=== PATIENT | female | born 1930 | race Caucasian/White ===

== ENCOUNTER 2016-04-21 15:13 | Inpatient (IN) | payer MEDICARE ==
[~2016-04-21] VITALS: Ht 154.9 cm; Wt 55.2 kg
--- NOTE | ~2016-04-21 | ECH ---
Transthoracic Echocardiography Report (TTE) Demographics Patient Name KELLY BREWER Date of Study 04/22/2016 Patient Number [id number] Visit Number [id number] Date of 1930 Room Number 426 Accession Number [id number] Gender Female Age 85 year(s) Referring Ajit Stewart Molder Operator Daniella Byrd Physician [facility] Physician Interpreting Elisa Riggs Scrub Wheel Operator Physician Supervising Ordering Physician Ajit Stewart MD/MLP Nurse Stress Wire Weaver Conclusions Contractility Score Summary Normal Left Ventricular contractility was noted. Summary Technically good exam. The estimated left ventricular ejection fraction is 60-65%. Mild concentric left ventricular hypertrophy. Normal right ventricle structure with reduced function. The left atrium is moderately dilated by LA volume index measurement. The right atrium is mildly dilated. Moderate mitral regurgitation by color Doppler. Moderate to severe tricuspid regurgitation by color Doppler. There is moderate pulmonary hypertension. The pulmonary pressure (RVSP) is 56 mmHg. Procedure Type of Study TTE procedure:Echo Complete SF. Procedure Date Date: 04/22/2016 Start: 08:35 AM Technical Quality: Good visualization Indications:Atrial fibrillation and Hypertension. Appropriate Use Criteria: 9 Height: 61 inches Weight: 137 pounds BSA: 1.61 m Rhythm: Atrial fibrillation HR: 83 bpm BP: 115/76 mmHg M-Mode/2D Measurements LV Diastolic Dimension: 3.39 cm LV Systolic Dimension: 3.02 cm LV Septum Diastolic: 1.11 cm LV PW Diastolic: 1.07 cm AO Root Dimension: 2.84 cm Cardiac Output: 2.5 l/min LA Dimension: 4.27 cm Cardiac Index: 1.55 l/min*m RV Diastolic Dimension: 3.48 cm LA volume index: 43 ml/m LVOT: 1.83 cm LVOT VTI: 11.44 cm RV Base: 3.3 cm LV Stroke volume: 30.07 ml RV Mid: 2.8 cm LV Stroke volume index: 18.68 ml/m TAPSE: 1.2 cm TDI-S': 8 cm/s Doppler Measurements AV Peak Velocity: 1.6 m/s MV Peak E-Wave: 1.54 m/s AV Peak Gradient: 10.24 mmHg AV Mean Gradient: 4.97 mmHg MV P1/2t: 97.8 msec LVOT Peak Velocity: 0.81 m/s MV Mean Gradient: 4.79 mmHg AV Area (Continuity):1.25 cm MV Deceleration Time: 337.3 msec TR Velocity:3.57 m/s MV Area (PHT): 2.25 cm TR Gradient:50.98 mmHg PV Peak Velocity: 0.9 m/s Estimated RAP:5 mmHg PV Peak Gradient: 3.27 mmHg Estimated RVSP: 56 mmHg Estimated PASP: 55.98 mmHg E' Septal Velocity: 0.06 m/s E' Lateral Velocity: 0.08 m/s RA Area: 19.42 cm Findings Left Ventricle The left ventricle is normal in size . Mild concentric left ventricular hypertrophy. Diastolic function indeterminate due to patient's arrhythmia. Right Ventricle Normal right ventricle structure with reduced function. Left Atrium The left atrium is moderately dilated by LA volume index measurement. Right Atrium The right atrium is mildly dilated. Mitral Valve Moderate mitral annular calcification. Mild mitral regurgitation by color Doppler. Aortic Valve The aortic valve is moderately sclerotic. Tricuspid Valve Normal tricuspid valve structure and function. Moderate tricuspid regurgitation by color Doppler. There is moderate pulmonary hypertension. The pulmonary pressure (RVSP) is 56 mmHg. Pulmonic Valve Normal pulmonic valve structure and function. Trivial pulmonic valve regurgitation by color Doppler. Pericardial Effusion No evidence of pericardial effusion. Miscellaneous Visualized portions of the aortic root and ascending aorta appear normal in size. Pleural Effusion No evidence of pleural effusion. Contractility Score LV regional wall motion:(0-Non visualized 1-Normal 2-Hypokinesis 3-Akinesis 4-Dyskinesis 5-Aneurysm) Signature
--- NOTE | ~2016-04-21 | OR ---
ADMIT: 04/21/2016 RM/LOC: 426 [facility] MR#: [id number] [address] [address] KELLY BREWER [address] [place] [address] Operative/Delivery Room Report SEX: F AGE: 85 : 1930 SURGERY DATE: 04/22/2016 SURGEON: Ethan Joshi MD PREOPERATIVE DIAGNOSES: Anemia and gastroesophageal reflux disease. POSTOPERATIVE DIAGNOSIS: No evidence of active bleeding, ulcers, masses, or other significant lesions. About a 4-5 cm hiatal hernia with some reflux esophagitis. PROCEDURE: EGD with biopsies of the distal esophagus. ANESTHESIA: MAC anesthesia. ESTIMATED BLOOD LOSS: Less than 5 mL. INDICATION FOR PROCEDURE: Please see H and P. After the risks, benefits, possible complications, and the alternatives have been explained and informed consent had been obtained, the patient was taken back to the procedure room, underwent sedation. Flexible EGD scope was introduced, slowly maneuvered down the esophagus to the distal, and there was some evidence of distal reflux esophagitis and about a 4 to 5 cm hiatal hernia. No other mass or lesion was noted. Maneuvered through the stomach, no ulcers or lesions, no signs of bleeding there down into the second portion of the duodenum. Duodenum and duodenal bulb appeared clear. No other mass, lesion, or signs of bleeding. I brought the scope back. Retroflexed view showed about a 4 to 5 cm hiatal hernia, but like I said again, no lesions or signs of bleeding. I came back up and biopsied the distal esophagus secondary to some reflux esophagitis there. Did not identify any other significant findings within the upper esophagus. The scope was removed and the procedure was terminated, tolerated it well, was taken to recovery room in stable and satisfactory condition. Ethan Joshi MD/ modl JOB #: [id number] CC: Alena Fong, Attending Physician Alena Fong, Family Physician
--- NOTE | 2016-04-26 10:08 | CO ---
ADMIT: 04/21/2016 RM/LOC: 426 [facility] MR#: [id number] [address] [address] KELLY BREWER [address] [place] [address] Consultation SEX: F AGE: 85 : 1930 DATE OF CONSULTATION: 04/23/2016 ATTENDING PHYSICIAN: Alena Fong CONSULTING PHYSICIAN: Ethan Joshi MD ADDENDUM: See full dictated consult by uRfino Ramirez, my PA, this is an addendum. The patient is an 85-year-old female, whom I had seen yesterday. We did an EGD because of the anemia, it did not really show any evidence of sites of bleeding or causes of anemia. Did have some reflux esophagitis. Significant past medical history for a vulvar cancer and a vulvectomy in the past and some hypertension, but taking no medications. Her ultrasound showed some stones and thickening of the gallbladder wall, but her common bile duct was normal. If you look at her enzymes, her bilirubin continues to climb. Her AST and ALT are mildly elevated but like I said, alkaline phosphatase is normal. At this point, with a normal looking common bile duct, truly got good visualization on ultrasound, this being unusual that this be a common bile duct stone and so makes me worry about a possible pancreatic type mass, this could be intrinsic liver disease. Her HIDA scan showed no filling of the common bile duct, pointing kind of more to some intrinsic liver disease as well but with high bilirubin, the HIDA scan not really reliable. Complains of generalized abdominal pain, just overall ill-looking female, in no significant or acute distress. The plan is, at this time, she is to get a CT scan to evaluate her abdomen and pelvis, and we will go from there. Like I said, nothing else otherwise different or is changed from full dictated consult by Rufino Ramirez. The patient has been seen, evaluated, and examined by myself. Ethan Joshi MD/ robby JOB #: [id number] CC: Alena Fong, Attending Physician Alena Fong, Family Physician
--- NOTE | 2016-04-26 13:31 | ER ---
ADMIT: 04/21/2016 RM/LOC: 426 [facility] MR#: [id number] [address] [address] KELLY BREWER [address] [place] [address] Emergency Room Report SEX: F AGE: 85 : 1930 DATE: 04/21/2016 ADDENDUM: This patient comes into the ER because she has been weak for the last 2 days. She states she is having difficulty getting in and out of bed and feels like she could fall. She also is severely nauseated. She has had some diarrhea, and she says she has vomited once. On physical exam, this is a pale jaundice 85-year-old, white female who is indeed weak. When she comes in, she is covered in bed bugs and had to be cleaned from both stool and bed bugs. She denies any pain, and her major complaint is nausea. Her hemoglobin came back at 5.0. Her white count 10.0, platelet count 300. Her AST was 275, ALT 403, and bilirubin was 2.5. She denies any tobacco use. I did do a rectal exam on her. She had no pain in her rectum, but the stool was black and smelled of blood; however, the Hemoccult came back negative. I ordered type and cross for 2 units, and she did get that started here in the emergency room. Her urinalysis also was positive for infection and then she was given Rocephin 2 g IV. I spoke with Dr. Fong, and she will admit this patient. DIAGNOSES: 1. Anemia. 2. Weakness. 3. Bed bugs. 4. Urinary tract infection. FRANCISCA Douglass / Reyes Moss MD / robby JOB #: [id number] CC: Alena Fong MD, Attending Physician Alena Fong MD, Family Physician
--- NOTE | 2016-04-29 12:26 | HP ---
ADMIT: 04/21/2016 RM/LOC: 426 [facility] MR#: [id number] [address] [address] KELLY BREWER [address] [place] [address] History and Physical SEX: F AGE: 85 : 1930 DATE OF SERVICE: 04/21/2016 HISTORY OF PRESENT ILLNESS: An 85-year-old female with past medical history of hypertension, who presents with progressive weakness, nausea, and poor oral intake over the past 2 weeks. The patient notes that over the past couple of weeks, she has been more weak and fatigued and her oral intake has not been as good as it usually is. She endorses nausea and intermittent dry heaving. She associates this with loose stools, which have been much darker than normal for her. She denies any bright red blood per rectum. She denies fevers or sweats, but does endorse intermittent chills. She states that she has not been into see a physician for many years. She is not currently taking any prescription medications, and other than hypertension, she does not know of any chronic illness that she suffers from. She denies any history of acute abdominal pain. No dysuria, hematuria or increased urinary frequency. Her biggest complaint right now is that she is very thirsty, nauseous and very tired. She denies any recent travel or any recent sick contacts. 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 She does not smoke and she does not drink alcohol. She denies any significant surgical procedures in the past aside from a vulvectomy for presumed vulvar cancer. The patient lives at home with her . Over the last couple of weeks, she has not noticed any changing of her skin color or eye color. She does not notice any increased abdominal distention. She denies heart palpitations. No chest pain. No shortness of breath. PAST MEDICAL HISTORY: Hypertension. History of cancer, status post vulvectomy. MEDICATIONS: None. REVIEW OF SYSTEMS: A complete review of systems was performed and is negative unless noted in the HPI. PHYSICAL EXAMINATION: VITAL SIGNS: Afebrile. Blood pressure 134/80, heart rate 130s, respiratory rate 24, and pulse oximetry 98%. GENERAL: Appearing fatigued, in no acute distress. HEENT: Eyes do reveal scleral icterus. Mucous membranes are dry. No oral lesions noted. HEART: Irregularly irregular rhythm. Tachycardia. No murmurs or rubs or gallops appreciated. LUNGS: Clear to auscultation bilaterally. No rales, wheeze or rhonchi noted. Adequate inspiratory effort. No respiratory distress. ABDOMEN: Soft, nondistended, tender mildly to deep palpation in the periumbilical and right upper quadrant regions. Bowel sounds are normal. No splenomegaly. Mild hepatomegaly noted. Liver palpated at 1 fingerbreadth below the costovertebral margins. EXTREMITIES: Warm, well perfused. Legs demonstrating bilaterally lower extremity edema. 1+ pulses, 2+ equally bilaterally. ADMIT: 04/21/2016 RM/LOC: 426 [facility] MR#: [id number] [address] [address] KELLY BREWER [address] [place] [address] History and Physical SEX: F AGE: 85 : 1930 NEUROLOGIC: Alert and oriented x2. Cranial nerves intact. There are no focal, neurological abnormalities noted. LABORATORIES AND IMAGING DATA: Chest x-ray negative for acute cardiopulmonary process. No focal consolidation, effusion or edema. Urinalysis 3+ leukocyte esterase, negative nitrites, many bacteria noted. WBC 10, hemoglobin 5, MCV 59.3, platelets 300. Sodium 132, potassium 3.7, creatinine 1.1. Total bilirubin 2.5, alkaline phosphatase 110. AST 275, ALT 403, albumin 2.9. Lipase 243. ASSESSMENT AND PLAN: An 85-year-old female with past medical history of hypertension, who has not been connected with the medical system for many years, presents with progressive weakness in the setting of microcytic anemia and melenic loose stools for the past 1-2 weeks, concerning for a slow persistent upper gastrointestinal bleed. She also demonstrates acute hepatitis with elevated transaminases. 1. Microcytic anemia. Hemoglobin of 5 and MCV 60, I suspect that this is not an acute process and is likely secondary to slow upper gastrointestinal bleed. We will further evaluate reticulocyte count and iron studies. She is receiving 2 units of packed red blood cells. Her transfusion threshold is less than 7. 2. Melena. Initial FOBT was negative. We will repeat. Source is most likely upper gastrointestinal. General Surgery consulted for EGD tomorrow. Continue IV Protonix 40 mg twice daily n.p.o. after midnight. 3. Repeat hemoglobin 2 hours after transfusion complete. 4. Acute hepatitis. LFT pattern is consistent with an intrahepatic acute hepatitis, possible secondary to hepatitis C or hepatitis B virus given her history of IV drug use. We will check HBV and HCV and HIV. She demonstrates mild jaundice and scleral icterus. We will differentiate bilirubin level. Complete abdominal ultrasound ordered for further evaluation. 5. Urinary tract infection. IV ceftriaxone 2 g every 24 hours for the first 24 hours and we will then likely be able to transition to an oral first line regimen such as Macrobid. Blood cultures drawn and pending. ADMIT: 04/21/2016 RM/LOC: 426 [facility] MR#: [id number] [facility] [address] [address] KELLY BREWER [address] [place] [address] History and Physical SEX: F AGE: 85 : 1930 6. Atrial fibrillation with rapid ventricular response. No previous known history of atrial fibrillation. Heart rates are currently 120s to 140s. Denies heart palpitations. We will attempt rate control with p.r.n. IV metoprolol. Heart rate goal less than 110. Transthoracic echo ordered to evaluate for possible heart failure in the setting of atrial fibrillation. 7. Code status: DNR/DNI. 8. Deep vein thrombosis prophylaxis, sequential compression devices. 9. Diet. Clear liquid, n.p.o. at midnight. DISPOSITION: Admit to telemetry, anticipate length of stay greater than 2 midnights. Lio Chavira MD Resident / Alena Fong MD / robby JOB #: [id number] CC: Alena Fong, Attending Physician Alena Fong, Family Physician
[2016-05-05] MEDS ORDERED: METOPROLOL TART25 MG PO (06:02)
[2016-05-05] MEDS ORDERED: MICRO-K DPS10 MEQ PO (06:03)
[2016-05-05] MEDS ORDERED: PROTONIX40 MG PO (06:03)
[2016-05-05] MEDS ORDERED: TYLENOL DPS325 MG PO (06:03)
[2016-05-05] MEDS ORDERED: ZOLOFT DPS25 MG PO (06:03)
[2016-05-05] MEDS ORDERED: LASIX DPS80 MG PO (06:04)
[2016-05-05] MEDS ORDERED: COUMADIN2.5 MG PO (06:04)
--- NOTE | 2016-05-05 06:27 | CO ---
ADMIT: 04/21/2016 RM/LOC: 426 [facility] MR#: [id number] [address] [address] OLY BREWER [address] [place] [address] Consultation SEX: F AGE: 85 : 1930 DATE OF CONSULTATION: 04/22/2016 ATTENDING PHYSICIAN: Alena Fong CONSULTING PHYSICIAN: Ethan Joshi MD REASON FOR CONSULTATION: Abdominal pain. HISTORY OF PRESENT ILLNESS: Oly is a very pleasant 85-year-old female, who apparently has been prompting her Health Care, who presents to the hospital with abdominal pain for the last 2-3 days. She denies ever having prior events like this before. She states her abdominal pain is mainly diffuse throughout her abdomen and radiates to her back. She has had one time of diarrhea and also some dark stools, a couple of days ago. She denies any nausea, vomiting, or bright red blood per rectum. She further denies taking any blood thinning medications or any medications recently for that matter. She denies any prior EGDs. PAST MEDICAL HISTORY: Hypertension. PAST SURGICAL HISTORY: Vulvectomy. ALLERGIES: NO KNOWN DRUG ALLERGIES. MEDICATIONS: No recent medications. FAMILY HISTORY: No history of any gallbladder or blood thinning issues. 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 She denies any tobacco or recent alcohol use. REVIEW OF SYSTEMS: CONSTITUTIONAL: The patient denies any fever, chills, or night sweats. The rest of comprehensive 10-point review of systems was performed and all other systems are negative. PHYSICAL EXAMINATION: GENERAL: The patient is in no acute distress. She is alert and oriented. HEENT: Head is normocephalic and atraumatic. EOMS are intact. Conjunctivae free of icterus, erythema, or pallor. Pinnae, free of deformities. Nose, midline no tracheal deviation. NECK: Supple. SKIN: Negative for jaundice, clubbing, edema, pallor, or cyanosis. LUNGS: Normal respiratory effort. HEART: Distal pulses intact. Regular rate and rhythm. ABDOMEN: Soft and nondistended. Diffusely tender with exquisite tenderness in the epigastric to right upper quadrant regions. Negative Mcfadden sign. LABORATORY DATA: White blood cell count 12.6. Alkaline phosphatase 99, AST 230, total bilirubin 5.4, ALT 347. ADMIT: 04/21/2016 RM/LOC: 426 [facility] MR#: [id number] [address] [address] BREWER OLY M [address] [place] [address] Consultation SEX: F AGE: 85 : 1930 DIAGNOSTIC IMAGING: Abdominal ultrasound revealed cholelithiasis with gallbladder wall thickening up to 5 mm and some pericholecystic fluid. No ductal dilatation noted. Common bile duct is 5 mm. ASSESSMENT: Abdominal pain. PLAN: It appears there are multiple issues going on with this patient. Because of this, I am ordering a HIDA scan now to further assess gallbladder function. We will continue watching her hemoglobin and fecal occult blood testing to see if there would be a drop in her hemoglobin and to further assess of an upper GI bleed. I discussed this plan with Dr. Joshi and the patient, which she is in agreement of this plan, had all her questions answered and would like to proceed. Thank you for the consultation this patient. FRANCISCA Salas / Ethan Joshi MD / robby JOB #: [id number] CC: Alena Fong, Attending Physician Alena Fong, Family Physician
--- NOTE | 2016-05-07 10:08 | DS ---
ADMIT: 04/21/2016 RM/LOC: 426 [facility] MR#: [id number] [address] [address] KELLY BREWER [address] [place] [address] Discharge Summary SEX: F AGE: 85 : 1930 ADMISSION DATE: 04/21/2016 DISCHARGE DATE: 05/03/2016 CONSULTATIONS: Dr. Joshi. PROCEDURES: She underwent an upper endoscopy. FINAL DIAGNOSES: 1. Anemia profound. 2. Atrial fibrillation, RVR (rapid ventricular response). 3. Increased LFTs (liver function tests), likely congestive hepatopathy. 4. Right heart failure acute. 5. Hypomagnesemia and hypokalemia. 6. Body lice. 7. Acute DVT (deep venous thrombosis). 8. Depression. REASON FOR ADMISSION: The patient is an 85-year-old female who presented to the emergency room with increasing weakness, overall not feeling well. Found to have a hemoglobin of less than 6. Increased LFTs. Overall disheveled state. Admitted for further stabilization. HOSPITAL COURSE: The patient was admitted. Transfused aggressively. Had the above-mentioned EGD. No acute findings above bleeding. Hemoglobin otherwise remains stable. She had increasing worsening LFTs. Was seen in consultation by surgery. Initially placed on antibiotics as there was concern for acute cholecystitis. Ultimately MRCP and other evaluations were negative for this. Antibiotics stopped. She did not clinically worsen. [place] to be passive congestive hepatopathy. She was diuresed with some minimal improvement of her liver function tests. She overall felt improved however at time of discharge. Electrolytes were replaced throughout hospitalization. Her atrial fibrillation was controlled with a beta edwin. She was found to have acute bilateral DVT in lower extremity. Initially placed on heparin and transitioned over to Coumadin. Otherwise remained profoundly depressed. Initially voiced some suicidal ideation, although this resolved as well. She was agreeable to [facility] care and will need some long-term outpatient followup. Arrangements were made and ultimately she was discharged over to skilled care facility with planned follow up as an outpatient. Notable labs ADMIT: 04/21/2016 RM/LOC: 426 [facility] MR#: [id number] [address] [address] KELLY BREWER [address] [place] [address] Discharge Summary SEX: F AGE: 85 : 1930 are negative ABDOUL. She had a negative HIV. She has no acute viral hepatitis. Mitochondrial antibody is elevated at 65.9. Smooth muscle antibodies negative. Liver kidney microsomal antibodies negative. Ammonia level is normal. The patient was hepatitis B antibody positive showing immunity. Discharge medications please see discharge med list, which I reviewed. She will follow up with me to establish care in the clinic in the next 7-10 days, May 10 at 9 a.m. She will have an INR and CMP in three days after discharge. She will be on the medications mentioned in the MAR which I reviewed. She will receive therapy services, PT, OT and Speech Therapy. Daily weights. She will be DNR status as is her wish. She will need followup on her positive ABDOUL. Neal Cohen MD/ dax JOB #: [id number] CC: Neal Cohen MD, Attending Physician Alena Fong MD, Family Physician
== END 2016-05-03 15:37 | DRG 377 ==
LOC: ER 15:13 → 4PCU 18:29
PROVIDERS: ADMIT Internal Medicine
PROC: 30233N1 Transfusion of Nonautologous Red Blood Cells into Peripheral Vein, Percutaneous Approach (ICD-10-PCS; principal; 2016-04-21)
PROC: 0DB38ZX Excision of Lower Esophagus, Via Natural or Artificial Opening Endoscopic, Diagnostic (ICD-10-PCS; 2016-04-22)
DX: K92.1 Melena (principal); I50.21 Acute systolic (congestive) heart failure; I82.411 Acute embolism and thrombosis of right femoral vein; I27.81 Cor pulmonale (chronic); D62 Acute posthemorrhagic anemia; I48.91 Unspecified atrial fibrillation; R17 Unspecified jaundice; N39.0 Urinary tract infection, site not specified; E83.42 Hypomagnesemia; B88.8 Other specified infestations; I10 Essential (primary) hypertension; I82.412 Acute embolism and thrombosis of left femoral vein; I07.1 Rheumatic tricuspid insufficiency; K76.1 Chronic passive congestion of liver; D50.9 Iron deficiency anemia, unspecified; Z66 Do not resuscitate; K21.0 Gastro-esophageal reflux disease with esophagitis; E87.6 Hypokalemia; F32.9 Major depressive disorder, single episode, unspecified; K44.9 Diaphragmatic hernia without obstruction or gangrene; Z85.89 Personal history of malignant neoplasm of other organs and systems